=== PATIENT | male | born 1990 | race Caucasian/White ===

== ENCOUNTER 2018-12-18 06:11 | Day surgery (SDC) | payer OTHER ==
[2018-12-18] MEDS ORDERED: CEFAZOLIN SODIUM IN 0.9 % NACL 2 GM/100 ML BAG IV ONE ×2 (06:36→08:40)
[2018-12-18] MEDS ORDERED: LACTATED RINGERS 1,000 ML IV ONE (06:59)
--- NOTE | 2018-12-18 07:05 | ANESTHESIA ---
Pre-Anesthesia VS, & Labs - Diagnosis right ring finger tendon rupture - Procedure right ring finger flexor tendon repair Vital Signs: Temp Pulse Resp BP Pulse Ox 36.4 C L 64 16 133/89 H 100 12/18/18 06:32 12/18/18 06:32 12/18/18 06:32 12/18/18 06:32 12/18/18 06:32 Height 5 ft 11 in Weight (kg) 95.25 kg - NPO >8 hours Home Medications and Allergies Home Medications: Ambulatory Orders No Known Home Medications 12/15/18 No Known Home Medications 12/15/18 Allergies/Adverse Reactions: Allergies Allergy/AdvReac Type Severity Reaction Status Date / Time No Known Drug Allergies Allergy Verified 12/15/18 15:34 Anes History & Medical History - Anesthetic History Anesthesia Complications: reports: No previous complications Family history of Anesthesia Complications: Denies Family history of Malignant Hyperthermia: Denies - Medical History Cardiovascular: reports: None Pulmonary: reports: None Gastrointestinal: reports: None Urinary: reports: None Musculoskeletal: reports: Other Endocrine/Autoimmune: reports: None Skin: reports: None Exam General: Alert, Oriented x3, Cooperative, No acute distress Dental: WNL Mouth Openin Fingerbreadth Neck Mobility: Normal Mallampati classification: I Thyromental Distance: greater than 6 cm Respiratory: Lungs clear Cardiovascular: Regular rate, Normal S1, Normal S2, No murmurs Plan Anesthesia Type: General Consent for Procedure(s) Verified and Reviewed: No Code Status: Attempt Resuscitation ASA classification: 1-Healthy patient Is this case an emergency?: No
[2018-12-18] MEDS ORDERED: SCOPOLAMINE PATCH TOP ONE (07:16)
[2018-12-18] MEDS ORDERED: BUPIVACAINE 0.25% PF 30 ML VIAL ONE (07:18)
[2018-12-18] MEDS ORDERED: BUPIVACAINE 0.25% PF 30 ML VIAL SUBQ ONE ×2 (08:24)
[2018-12-18] MEDS ORDERED: ONDANSETRON 4 MG/2 ML VIAL IVP ONE (08:40)
[2018-12-18] MEDS ORDERED: ACETAMINOPHEN 1,000 MG/100 ML 100 ML IV ONE (08:40)
[2018-12-18] MEDS ORDERED: LIDOCAINE-MPF 2% 5 ML VIAL IM ONE (08:40)
[2018-12-18] MEDS ORDERED: DEXAMETHASONE 4 MG/ML VIAL IVP ONE (08:40)
[2018-12-18] MEDS ORDERED: fentaNYL 100 MCG/2 ML VIAL IVP ONE (08:40)
[2018-12-18] MEDS ORDERED: PROPOFOL 200 MG/20 ML VIAL IVP ONE (08:40)
[2018-12-18] MEDS ORDERED: KETOROLAC 30 MG/ML VIAL IVP ONE (08:40)
[2018-12-18] MEDS ORDERED: oxyCODONE 5 MG TABLET PO PRN (10:24)
[2018-12-18] MEDS ORDERED: ONDANSETRON 4 MG/2 ML VIAL IVP PRN (10:24)
[2018-12-18] MEDS: HYDROmorphone 1 MG/ML CARPUJECT ONE ×3 (10:31→10:45)
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
[2018-12-18 11:40] VITALS: BP 126/85
== END 2018-12-18 06:12 | disposition home or self-care (01) ==
LOC: SDS 06:11
PROVIDERS: ATTEND Orthopaedic Surgery
PROC: 0LM70ZZ Reattachment of Right Hand Tendon, Open Approach (ICD-10-PCS; principal; 2018-12-18 07:30)
DX: S66.114A Strain of flexor muscle, fascia and tendon of right ring finger at wrist and hand level, initial encounter (principal); V19.3XXA Pedal cyclist (driver) (passenger) injured in unspecified nontraffic accident, initial encounter; Y93.55 Activity, bike riding; Y92.9 Unspecified place or not applicable; Y99.8 Other external cause status; Z87.891 Personal history of nicotine dependence
CPT/HCPCS: 26356; J0131; J0690; J1170; J3490; J7120